=== PATIENT | male | born 1945 | race Caucasian/White ===

== ENCOUNTER → 2018-06-01 | Outpatient (CLI) | payer MEDICARE | END | disposition home or self-care (01) | LOC: US 14:05 | DX: I73.9 Peripheral vascular disease, unspecified (principal); I77.89 Other specified disorders of arteries and arterioles | CPT/HCPCS: 93922; 93925 ==

== ENCOUNTER → 2019-03-20 | Outpatient (CLI) | payer MEDICARE ==
[2018-06-27 11:00] VITALS: BP 100/59
[~2019-03-20] MED LIST: ASPI-482 PO; ASPI325T11 PO; ATEN25TA PO; CALC300T5 PO; CILO100T21 PO; CLOP75TA PO; DIPH25CA58 PO; DOCU-109 PO; FLUT16SP2 NS; GUAI600T47 PO; INSU100I13 SQ; INSU100I17 SQ; INSU100I27 SQ; INSU100V8 SQ; LIPITOR80 MG PO; LIRA0.6P2 SQ; LISI1TAB5 PO; LORA10TA68 PO; METF10007 PO; METO-247 PO; METO25TA4 PO; OMEP40CA5 PO; PANT20TA2 PO; RANI300C PO; REGADENOSON 0.4 MG/5 ML DISP.SYRIN. IV ONE; SERT100T PO; TRAZ-86 PO; UBID100T5 PO
--- NOTE | 2019-03-20 11:46 | RAD ---
MR#: [id number] Date of Study: 03/20/2019 Ordering Physician: TANNER OLIVA Referring Physician: SILVIA FREDERICK Tech: RT Juanpablo BabcockR) (N) APPROVED REPORT Test Type: Pharmacological Stress Nurse/Tech: Dre Lozoya RN Test Indications: CAD Cardiac History: CABG, stents, DM, HTN Medications: See Electronic Medical Record Medical History: See Electronic Medical Record Resting Heart Rate: 72 bpm Resting Blood Pressure: 161/68mmHg Pretest Chest Pain: None Nurse/Tech Notes lungs CTA, S1S2 Consent: The procedure was explained to the patient in lay terms. Informed consent was witnessed. Terence eout was entered into [employer]. History and Stress Test performed by Dre Lozoya RN Pharm. Details Pharmacologic stress testing was performed using 0.4mg per 5ml of regadenoson given intravenously ove r 7-10 seconds. Stress Symptoms dyspnea POST EXERCISE Reason for Termination: Infusion complete Max HR: 98 bpm Max Blood Pressure: 170/78mmHg Blood Pressure response to exercise: Normal blood pressure response during stress. Heart Rate response to exercise: normal response Chest Pain: No. Arrhythmia: No. ST Change: No. see above baseline INTERPRETATION Stress EKG Conclusion: The resting EKG shows a sinus rhythm with nonspecific ST-T wave changes. The stress EKG shows no significant changes from baseline. No EKG evidence of stress-induced ischemia. Imaging Protocol IMAGE PROTOCOL: Rest Tc-99m/stress Tc-99m 1 day Rest: Stress: Viability: Radiopharm.Tc99m GwvfkpnnqQd92f Sestamibi Dose10.5mCi 33mCi Duration 13min. 13min. Img Date 03/20/2019 03/20/2019 Inj-Img Wmht64cxl. 60min. Rest Admin Site:IV - Right AntecubitalAdministrator:RT Sadiq (R)(N) Stress Admin Site: IV - Right AntecubitalAdministrator: CROY Tenorio STRESS DATA End Diast. Vol.110.0mlLVEDV index BSA66.0ml End Syst. Vol.45.0mlLVESV index BSA27.0ml Myocardial Txbw506.0gEject. Skszdkal90.0% Stress Scores Regional WT0.00Summed WT13.00 Regional WM0.00Summed WM19.00 LV Perfusion The stress scans showed no significant defects. The rest scans showed no significant defects. Nuclear imaging shows no reversible ischemia or infarct. Wall Motion Overall normal LV systolic function, slight septal hypokinesis and an ejection fraction of 59%. LV Perf. Quant 17 Seg. SSS0.00 17 Seg. SRS3.00 17 Seg. SDS0.00 Stress Defect Extent (% LAD)0.00Rest Defect Extent (% LAD)11.30Rev. Defect Extent (% LAD)0.00 Stress Defect Extent (% LCX) 0.00Rest Defect Extent (% LCX)0.00Rev. Defect Extent (% LCX)0.00 Stress Defect Extent (% RCA)0.00Rest Defect Extent (% RCA)0.00Rev. Defect Extent (% RCA)0.00 Stress Defect Extent (% [place])0.00Rest Defect Extent (% [place])3.90Rev. Defect Extent (% [place])0.00 Conclusion 1. No EKG evidence of stressed induced ischemia. 2. Nuclear imaging shows no reversible ischemia or infarct. 3. LV systolic function shows slight septal hypokinesis and an ejection fraction at 59%. 4. Moderately low risk Lexiscan nuclear stress test. Signed by : Pako Cristina MD Electronically Approved : 03/20/2019 11:45:59
--- NOTE | 2019-03-20 11:52 | CARD ---
MR#: [id number] Date of Study: 03/20/2019 Ordering Physician: TANNER OLIVA, Referring Physician: TANNER OLIVA Tech: Madeline Adair RDCS APPROVED REPORT EXAM: Two-dimensional and M-mode echocardiogram with Doppler and color Doppler. Other Information Quality : Good INDICATION Cardiac Disease: CAD Surgery/Intervention CABG: Date: Approx 15 years ago 2D DIMENSIONS RVDd2.4 (2.9-3.5cm)Left Atrium(2D)3.2 (1.6-4.0cm) IVSd0.9 (0.7-1.1cm)Aortic Root(2D)2.6 (2.0-3.7cm) LVDd3.8 (3.9-5.9cm)LVOT Diameter2.0 (1.8-2.4cm) PWd1.0 (0.7-1.1cm)LVDs2.6 (2.5-4.0cm) FS (%) 32.1 %SV37.0 ml Aortic Valve AoV Peak Jose L.125.9cm/sAoV VTI29.9cm AO Peak GR.6.3mmHgLVOT Peak Jose L.81.5cm/s LVOT VTI 19.99cmAO Mean GR.4mmHg VALERIE (VMAX)2.37fb2ENJ (VTI)2.18cm2 Mitral Valve MV E Zchcekhc23.0cm/sMV DECEL BUQB761xm MV A Pvhpycae451.3cm/sMV MRL19gc E/A Ratio0.8MVA (PHT)3.66cm2 TDI E/Medial E'23.8 Tricuspid Valve TR P. Kcrczzpe880ab/sRAP XSBJIPRX7bbAs TR Peak Gr.84bxEqGHRL39ydZf Pulmonary Vein S1 Lrfuxceh18.9cm/sD2 Ygjdjxxc50.2cm/s LEFT VENTRICLE The left ventricle is normal size. There is borderline concentric left ventricular hypertrophy. The l eft ventricular systolic function is normal and the ejection fraction is within normal range. The Eje ction Fraction is 55-60%. There is mild hypokinesis in the mid-anteroseptal wall. Transmitral Doppler flow pattern is Grade I-abnormal relaxation pattern. RIGHT VENTRICLE The right ventricle is normal size. The right ventricular systolic function is normal. ATRIA The left atrium size is normal. The right atrium size is normal. The interatrial septum is intact wit h no evidence for an atrial septal defect or patent foramen ovale as noted on 2-D or Doppler imaging. AORTIC VALVE The aortic valve is calcified but opens well. Doppler and Color Flow revealed no significant aortic r egurgitation. There is no significant aortic valvular stenosis. MITRAL VALVE The mitral valve is thickened but opens well. Mitral annular calcification is mild. There is no evide nce of mitral valve prolapse. There is no mitral valve stenosis. Doppler and Color-flow revealed mild mitral regurgitation. TRICUSPID VALVE The tricuspid valve is normal in structure and function. Doppler and Color Flow revealed trace to mil d tricuspid regurgitation. The PA pressure was estimated at 30 mmHg. There is no tricuspid valve sten osis. PULMONIC VALVE The pulmonic valve is not well visualized. Doppler and Color Flow revealed trace to mild pulmonic nikita vular regurgitation. There is no pulmonic valvular stenosis. GREAT VESSELS The aortic root is normal in size. The ascending aorta is normal in size. The IVC is normal in size a nd collapses >50% with inspiration. PERICARDIAL EFFUSION There is no evidence of significant pericardial effusion. Critical Notification Critical Value: No <Conclusion> The left ventricle is normal size. The left ventricular systolic function is normal and the ejection fraction is within normal range. The Ejection Fraction is 55-60%. There is mild hypokinesis in the mid-anteroseptal wall. There is borderline concentric left ventricular hypertrophy. There is no significant aortic valvular stenosis. Doppler and Color Flow revealed no significant aortic regurgitation. Doppler and Color-flow revealed mild mitral regurgitation. Doppler and Color Flow revealed trace to mild tricuspid regurgitation. The PA pressure was estimated at 30 mmHg. Signed by : Pako Cristina MD Electronically Approved : 03/20/2019 11:52:22
== END | disposition home or self-care (01) ==
LOC: NM 07:35
PROVIDERS: ATTEND Internal Medicine Cardiovascular Disease
DX: I08.8 Other rheumatic multiple valve diseases (principal); I25.10 Atherosclerotic heart disease of native coronary artery without angina pectoris; I10 Essential (primary) hypertension; E11.9 Type 2 diabetes mellitus without complications; Z79.01 Long term (current) use of anticoagulants; Z95.1 Presence of aortocoronary bypass graft; Z95.818 Presence of other cardiac implants and grafts
CPT/HCPCS: 78452; 93017; 93306; A9500; J2785

== ENCOUNTER → 2019-06-10 | Outpatient (CLI) | payer MEDICARE ==
[2018-06-27 11:00] VITALS: BP 100/59
[~2019-06-10] MED LIST changes: -REGADENOSON 0.4 MG/5 ML DISP.SYRIN. IV ONE; +ZOLPIDEM 5 MG TABLET. PO ONE
--- NOTE | 2019-06-11 13:24 | SLEEP ---
DATE OF STUDY: 06/10/2019 SLEEP STUDY ATTENDING PHYSICIAN: Dr. Julita Greenwood. The patient is 73 years old who weighs 148 pounds with a BMI of 27. The patient's [place] score was 10. The patient underwent a split night study performed at [facility]. During the night study, the patient spent 416 minutes in bed and slept for 340 minutes with a sleep efficiency of 82%. Sleep latency was 55 minutes with absent REM sleep. Overall, sleep architecture showed normal stage 1 sleep, increased stage 2 sleep, absent slow wave and absent REM sleep. During the initial diagnostic portion of the study, the patient slept for 84 minutes. During that time, there were 40 obstructive apneas, 48 mixed apneas, no central apneas. There were 53 hypopneas. The patient's apnea hypopnea index was 101 per hour with a supine index of 105 per hour. REM sleep was not observed. EKG monitoring revealed an average heart rate of 67 beats per minute, no sustained arrhythmias observed. Nocturnal oximetry study revealed a mean oxygen saturation of 98%, the lowest of 80%. A 4% of time oxygen saturation remained between 80% and 89%. PLMS were seen at index of 58 per hour and 5 per hour caused EEG arousals. The patient met the criteria for CPAP initiation. It was started at 5 cm water and titrated up to 16 cm water. At the final pressure, the patient slept for 146 minutes. The patient had supine sleep throughout. No REM sleep observed. The patient's AHI was reduced to 1 per hour and oxygen saturation remained above 92%. The patient used a full face mask, small size. IMPRESSION: 1. Severe sleep apnea-hypopnea syndrome at an apnea hypopnea index of 101 per hour. 2. Nocturnal hypoxia secondary obstructive sleep apnea, but resolved with continuous positive airway pressure. 3. Severe periodic limb movements. RECOMMENDATIONS: 1. CPAP at 16 cm water completely eliminated the patient's sleep apnea and should be used on a nightly basis. 2. Follow up in 4-6 weeks to assess compliance with CPAP and to document clinical improvement. 3. Avoid WEBSPHERE DEVELOPER depressants. 4. Caution regarding driving until symptoms of sleep apnea resolve with the use of CPAP. 5. The PLMS does not need to be treated unless the patient has symptoms of restless legs during the day. NELY NEWMAN MD DR: ERINN/elzbieta JOB#: [id number] / [id number] JULITA Dai MD
== END | disposition home or self-care (01) ==
LOC: RT 18:58
PROVIDERS: ATTEND Family Medicine
DX: G47.33 Obstructive sleep apnea (adult) (pediatric) (principal); G47.34 Idiopathic sleep related nonobstructive alveolar hypoventilation; R40.0 Somnolence
CPT/HCPCS: 95810

== ENCOUNTER → 2019-09-20 | Outpatient (CLI) | payer MEDICARE ==
[2018-06-27 11:00] VITALS: BP 100/59
[~2019-09-20] MED LIST changes: +LISI1TAB19 PO; -LISI1TAB5 PO; +OMEP40CA45 PO; -OMEP40CA5 PO; -ZOLPIDEM 5 MG TABLET. PO ONE
--- NOTE | 2019-09-20 18:11 | KCIC ---
Examination: RIBS RIGHT AND PA CHEST History: Right rib pain. Fell one week ago. Comparison/Correlation: None Findings: PA view of the chest and 3 additional images of the right ribs were provided. Sternal wires and mediastinal clips are present. Epicardial leads noted. Heart size and pulmonary vasculature are normal. No infiltrate or pleural effusion. Minimal left basilar discoid atelectasis. No pneumothorax. No acute fracture or bony destruction. Old right eighth and ninth rib fractures are present. Impression: No acute fracture. No infiltrate or pneumothorax. Electronically signed by: Harvinder Graham MD (09/20/2019 6:08 PM) [facility]
== END ==
LOC: KCIC 12:49
PROVIDERS: ATTEND Nurse Practitioner Family
DX: J98.11 Atelectasis (principal); R07.81 Pleurodynia; I25.10 Atherosclerotic heart disease of native coronary artery without angina pectoris; I10 Essential (primary) hypertension; E78.00 Pure hypercholesterolemia, unspecified; E11.9 Type 2 diabetes mellitus without complications; K21.9 Gastro-esophageal reflux disease without esophagitis; Z96.89 Presence of other specified functional implants; Z98.890 Other specified postprocedural states
CPT/HCPCS: 71101

== ENCOUNTER 2019-10-15 06:55 | Observation (INO) | payer MEDICARE ==
[2019-10-15] VITALS (16 sets, daily range): BP systolic 101–166; BP diastolic 45–108
[~2019-10-15] VITALS: Ht 157.5 cm; Wt 67.7 kg
[2019-10-15] MEDS ORDERED: LIDOCAINE 1% PF 2 ML VIAL. ONE (07:33)
[2019-10-15] MEDS ORDERED: IODIXANOL 320 MG/ML 100 ML VIAL. ONE ×2 (07:34→09:17)
[2019-10-15 07:56] LABS: CALCIUM 8.9 mg/dL (8.5-10.1); GFR 73.2
[2019-10-15] MEDS ORDERED: fentaNYL PF VIAL 100 MCG/2 ML VIAL ONE ×2 (08:25→09:05)
[2019-10-15] MEDS ORDERED: MIDAZOLAM HCL/PF 2 MG/2 ML VIAL. ONE ×2 (08:26→09:05)
[2019-10-15] MEDS ORDERED: LIDOCAINE 1% Multi-Dose 20 ML VIAL. ONE (08:37)
[2019-10-15 08:51] LABS: HEMATOCRIT 48.3 % (39.0-53.0); RED BLOOD COUNT 5.58 x10^6/uL (4.30-5.70)
[2019-10-15] MEDS ORDERED: IODIXANOL 320 MG/ML 100 ML VIAL. IART ONE (09:00)
[2019-10-15] MEDS ORDERED: LIDOCAINE 1% Multi-Dose 20 ML VIAL. INJ ONE (09:00)
[2019-10-15] MEDS ORDERED: fentaNYL PF VIAL 100 MCG/2 ML VIAL IV ONE ×2 (09:00→09:45)
[2019-10-15] MEDS ORDERED: MIDAZOLAM HCL/PF 2 MG/2 ML VIAL. IV ONE ×2 (09:00→09:15)
[2019-10-15] MEDS ORDERED: INSU100I13 SQ (09:06)
[2019-10-15] MEDS ORDERED: INSU100V11 IJ (09:06)
[2019-10-15] MEDS ORDERED: BIVALIRUDIN 250 MG VIAL. IV ONE ×2 (09:14→09:30)
[2019-10-15] MEDS ORDERED: NITROGLYCERIN 200 MCG/2 ML SYRINGE FOR CATH/VASC LAB. ONE (09:28)
[2019-10-15] MEDS ORDERED: NITROGLYCERIN 200 MCG/2 ML SYRINGE FOR CATH/VASC LAB. IART ONE (09:30)
[2019-10-15] MEDS ORDERED: hydrALAZINE 20 MG/ML VIAL. ONE (09:37)
[2019-10-15] MEDS ORDERED: hydrALAZINE 20 MG/ML VIAL. IVP ONE (09:45)
[2019-10-15] MEDS ORDERED: IV 1/2 NORMAL SALINE 1,000 ML IV SCH (10:00)
[2019-10-15] MEDS ORDERED: CLOPIDOGREL BISULFATE 75 MG TABLET PO ONE (10:00)
[2019-10-15] MEDS ORDERED: NITROGLYCERIN SUBLINGUAL 0.4 MG BOTTLE OF 25. SL PRN (10:00)
[2019-10-15] MEDS ORDERED: ASPIRIN 325 MG TABLET PO ONE (10:00)
[2019-10-15] MEDS ORDERED: ACETAMINOPHEN 325 MG TABLET. PO PRN (10:00)
--- NOTE | 2019-10-15 10:00 | PDOC ---
MODERATE SEDATION ASSESSMENT RISKS/ALTERNATIVES Risks/Alternatives Risks and alternatives of this type of sedation and procedure discussed with: RISK/ALTERNATIVES: Patient H & P ON CHART H & P H & P on chart and reviewed for co-morbid conditions and appropriate labs. H&P ON CHART: Yes STATUS PREG STATUS ASSESSED: N/A MEDS/ALLERGIES REVIEWED Meds/Allergies Reviewed Medications and Allergies including time and route of recently administered narcotics and sedatives. MEDS/ALLERGIES REVIEWED: Yes ASA RATING ASA RATING: II AIRWAY ASSESSMENT Airway Assessment Airway patency, oral function limitations, presence of caps, crowns, dentures, partials, and ability to extend neck assessed. AIRWAY ASSESSMENT: Yes MALLAMPATI SCORE MALLAMPATI SCORE: II PRE-SEDATION ASSESSMENT PRE-SEDATION ASSESSMENT: Yes TANNER OLIVA MD Oct 15, 2019 10:00
[2019-10-15] MEDS ORDERED: INSULIN GLARGINE SYRINGE. SQ SCH (12:00)
[2019-10-15] MEDS: SERTRALINE 50 MG TABLET. PO SCH (12:27)
[2019-10-15] MEDS: PANTOPRAZOLE 40 MG TABLET.DR. PO SCH (12:27)
[2019-10-15] MEDS: METOPROLOL TART IMMED RELEASE 25 MG TABLET. PO SCH ×2 (12:27→21:06)
[2019-10-15] MEDS: INSULIN GLARGINE SYRINGE. SQ SCH (12:32)
--- NOTE | 2019-10-15 12:51 | CARD ---
MR#: [id number] Date of Study: 10/15/2019 Ordering Physician: TANNER OLIVA, Referring Physician: TANNER OLIVA Tech: FABIENNE SAL RTR APPROVED REPORT Technologist: FABIENNE SAL RTR Nurse: MARIA L VARGAS RN Procedure(s) performed: 1. Left heart catheterization, selective coronary angiography and selective angiography of the bypass grafts 2. Successful PCI/drug eluting stent placement to the saphenous vein graft to the diagonal branch MODERATE SEDATION TIME: 80 MINS FLUORO TIME: 26.8 MIN DOSE: 74.4 GYCM2 CONTRAST: 167 VISI INDICATION The indication(s) include : unstable angina . CS Clinical Frailty Scale [facility] Clinical Frailty Scale: Mildly Frail Heart Failure Heart Failure: No PROCEDURE NARRATIVE After explaining the risks, benefits and alternative options, informed consent was obtained from osman ent. Patient was brought to the cardiac Non Licensed Nuclear Equipment Operator and his right groin was prepped and draped in the us ual fashion. 20 mL of 2% lidocaine was infiltrated into the skin and subcutaneous tissues for local a nesthesia. Arterial access was obtained in the right common femoral artery and a 6 Cameroonian sheath was inserted. 6 Cameroonian JL4 catheter was used to perform selective angiography of the left coronary artery . 6 Cameroonian JR4 catheter was used to perform selective angiography of the saphenous vein graft to the diagonal branch. 6 Cam[place]onian IM catheter was used to perform selective angiography of the left internal mammary artery graft to the left anterior descending artery. The saphenous vein graft to the obtuse m arginal branch appears to have been occluded proximally. The saphenous vein graft to the right temple ry artery and the [place] right coronary artery were noted to be occluded from prior cardiac catheteri zations and hence was not engaged. LVEDP and transaortic gradients were measured. The following findi ngs were noted. FINDINGS 1. Hemodynamics: Left ventricle end-diastolic pressure 13 mmHg. No pullback gradient across the aor tic valve. 2. Coronary and bypass graft angiography: a. The left main coronary artery arose from the left sinus of Valsalva and showed a widely patent pr eviously placed stent extending into the left circumflex artery. b. The left anterior descending artery is occluded proximally. c. The left circumflex artery showed widely patent stent extending from the left main coronary arter y into the proximal to midsegment. The first obtuse marginal branch is occluded proximally. No criti maryam lesions needing intervention were noted in the rest of the left circumflex artery. d. The right coronary artery was known to be occluded in the proximal segment. There is distal recon stitution of the posterior descending branch from left to right collaterals. e. The saphenous vein graft to the right coronary artery is noted to be occluded from prior cardiac catheterization. f. The saphenous vein graft to the diagonal branch showed 80% stenosis in the proximal segment and 7 0% stenosis in the proximal to midsegment. g. The saphenous vein graft to the obtuse marginal branch of left circumflex artery appears to be oc cluded proximally. h. The left internal mammary artery graft to the left anterior descending artery was widely patent. Distal to the anastomosis, the [place] left anterior descending artery did not show any significant st enosis. g. Incidental note was made of 80% stenosis involving the very proximal segment of right SFA on YARD ATTENDANT angiography prior to vascular access closure. INTERVENTION The saphenous vein graft to the diagonal branch was engaged with a 6 Cam[place]onian JR4 guide catheter with s ideholes. The stenoses in the proximal and proximal to mid segments were crossed with a 0.014 inch [place] a[place] Pro water guidewire. These with predilated with a 3.0 x 20 mm euphora balloon following which thi s was successfully treated with a 3.5 x 28 mm Corea Xience Ariana drug-eluting stent. Follow-up viet orrhaphy showed resolution of the lesions with good distal flow. Patient tolerated the procedure well . Hemostasis was achieved using mynx closure device. There were no immediate complications. IRENA Flow IRENA Flow (Pre-Intervention): IRENA-2 IRENA Flow (Post-Intervention): IRENA-3 Conclusion 1. Severe [place] vessel coronary artery disease s/p CABG as described above with patent previously p laced stent extending from the left main coronary artery into the left circumflex artery, patent LYON to LAD, significant stenoses involving the saphenous vein graft to the diagonal branch and occluded saphenous vein graft to RCA and saphenous vein graft to OM/LCx. 2. Successful PCI/drug eluting stent placement to the saphenous vein graft to the diagonal branch. Recommendations 1. Aspirin 325 mg daily for one month followed by 81 mg daily 2. Plavix 75 mg daily for preferably one year 3. Cardiovascular risk factor modification Signed by : Tanner Oliva, Electronically Approved : 10/15/2019 12:51:19
[2019-10-15] MEDS: INSULIN LISPRO 300 UNITS/3 ML VIAL. SQ SCH (17:17)
[2019-10-15] MEDS ORDERED: IBUPROFEN 400 MG TABLET. PO PRN (18:30)
[2019-10-15] MEDS ORDERED: traZODone 100 MG TABLET. PO SCH (21:00)
[2019-10-15] MEDS ORDERED: ATORVASTATIN CALCIUM 40 MG TABLET. PO SCH (21:00)
[2019-10-16 03:00] VITALS: BP 146/61
[2019-10-16 07:00] VITALS: BP 158/76
[2019-10-16] MEDS ORDERED: CLOPIDOGREL BISULFATE 75 MG TABLET PO SCH (08:00)
[2019-10-16] MEDS ORDERED: ASPIRIN ENTERIC COATED 325 MG TABLET.DR. PO SCH (08:00)
[2019-10-16] MEDS: SERTRALINE 50 MG TABLET. PO SCH (08:49)
[2019-10-16] MEDS: METOPROLOL TART IMMED RELEASE 25 MG TABLET. PO SCH (08:49)
[2019-10-16] MEDS: PANTOPRAZOLE 40 MG TABLET.DR. PO SCH (08:49)
[2019-10-16] MEDS: INSULIN GLARGINE SYRINGE. SQ SCH (08:54)
[2019-10-16] MEDS: INSULIN LISPRO 300 UNITS/3 ML VIAL. SQ SCH ×2 (08:56→12:44)
[2019-10-16 11:00] VITALS: BP 163/79
--- NOTE | 2019-10-16 12:23 | NUR ---
SS following for discharge planning. SS reviewed pt chart. Pt is from home with spouse and is currently on room air. SS will continue to follow for discharge planning.
--- NOTE | 2019-10-16 13:08 | DISCH ---
DISCHARGE INSTRUCTIONS Condition on Discharge Condition on Discharge: Stable Activity After Discharge Activity Instructions for Disc: Activity as tolerated, Other, see below (See diagnosis specific handout ) Bathing Instructions: No Tub Bath until see Lifting Instructions after Dis: Do not lift >10 pounds Exercise Instruction after Dis: Progress as tolerated Weight Bearing Status after Di: Other, see below Diet after Discharge Diet after Discharge: Cardiac, Diabetic No Calorie Level Diet Texture: Regular Liquid Texture: Thin Liquid Swallowing Supervision: None needed Wound Incision Care Wound/Incision Care: Other, see below (keep puncture site clean and dry. May leave open to air.) Checks after Discharge Checks after discharge: Check blood press - daily, Check blood sugar, ac/hs Contacting the DR. after DC Call your doctor for: Concerns you may have Treatment/Equipment after DC Adaptive Equipment Issued: None JESUS ALBERTO SANDERS APRN Oct 16, 2019 13:08
--- NOTE | 2019-10-16 13:09 | PDOC3 ---
Discharge Summary Visit Information Date of Admission: Oct 15, 2019 Date of Discharge: Oct 16, 2019 Admitting Diagnosis: Chest pain, CAD Admitting Diagnosis Comment: CAD PAD Hypertension Hyperlipidemia Diabetes, II Final Diagnosis CAD PAD Hypertension Hyperlipidemia Diabetes, II Brief Hospital Course Allergies Allergies Coded Allergies Type Severity Reaction Last Updated Verified No Known Drug Allergies 06/05/14 No Vital Signs Vital Signs Date Time Temp Pulse Resp B/P (MAP) Pulse Ox O2 Delivery O2 Flow Rate FiO2 10/16/19 11:00 98.1 63 18 163/79 (107) 96 Room Air 98.1 10/15/19 16:18 2.0 Lab Results Laboratory Tests Test 10/15/19 07:28 10/15/19 11:53 10/15/19 16:48 10/15/19 20:41 White Blood Count 7.0 x10^3/uL (4.0-11.0) Red Blood Count 5.58 x10^6/uL (4.30-5.70) Hemoglobin 16.0 g/dL (13.0-17.5) Hematocrit 48.3 % (39.0-53.0) Mean Corpuscular Volume 87 fL (79-100) Mean Corpuscular Hemoglobin 29 pg (25-35) Mean Corpuscular Hemoglobin Concent 33 g/dL (31-37) Red Cell Distribution Width 15.0 % (11.5-14.5) Platelet Count 385 x10^3/uL (140-400) Prothrombin Time 12.0 SEC (11.7-14.0) Prothromb Time International Ratio 0.9 (0.8-1.1) Sodium Level 141 mmol/L (136-145) Potassium Level 4.0 mmol/L (3.5-5.1) Chloride Level 103 mmol/L (98-107) Carbon Dioxide Level 30 mmol/L (21-32) Anion Gap 8 (6-14) Blood Urea Nitrogen 26 mg/dL (8-26) Creatinine 1.0 mg/dL (0.7-1.3) Estimated GFR (Cockcroft-Gault) 73.2 Glucose Level 109 mg/dL (70-99) Calcium Level 8.9 mg/dL (8.5-10.1) Glucose (Fingerstick) 98 mg/dL (70-99) 161 mg/dL (70-99) 54 mg/dL (70-99) Test 10/15/19 22:38 10/16/19 03:02 10/16/19 08:18 10/16/19 11:50 Glucose (Fingerstick) 83 mg/dL (70-99) 146 mg/dL (70-99) 122 mg/dL (70-99) 138 mg/dL (70-99) Laboratory Tests Test 10/15/19 16:48 10/15/19 20:41 10/15/19 22:38 10/16/19 03:02 Glucose (Fingerstick) 161 mg/dL (70-99) 54 mg/dL (70-99) 83 mg/dL (70-99) 146 mg/dL (70-99) Test 10/16/19 08:18 10/16/19 11:50 Glucose (Fingerstick) 122 mg/dL (70-99) 138 mg/dL (70-99) Brief Hospital Course Mr. Dickson is a 74 old male, with a history of CAD s/p CABG and PAD s/p TOWER LOADER OPERATOR to the right SFA and popliteal arteries and most recent atherectomy/TOWER LOADER OPERATOR/stent to the left popliteal artery and atherectomy/TOWER LOADER OPERATOR ti the left TP trunk and posterior tibial artery, who presented to the office for followup with complaints of chest pain that was associated with dyspnea upon exertion. Given symptomatology and significant history and risk factors, cardiac catheterization was recommended. Left heart cath revealed severe [place] vessel coronary artery disease s/p CABG with patent previously placed stent extending from the left main coronary artery into the left circumflex artery, patent LYON to LAD, significant stenoses involving the saphenous vein graft to the diagonal branch and occluded saphenous vein graft to RCA and saphenous vein graft to OM/LCx. Patient underwent successful PCI/drug eluting stent placement to the saphenous vein graft to the diagonal branch. Tolerated procedure well and was monitored overnight without complications. Right groin arteriotomy site soft, clean, dry. No ecchymosis or hematoma present. Bilateral neurovascular status intact. Lungs CTA. No edema. We will increase ASA to 325mg x1 month then resume 81mg thereafter. Otherwise, medications will remain the same. Discharge instructions reviewed and patient verbalized an understanding. Patient seen and examined. Agree with METAL STAMPER's assessment and plan. s/p PCI/FAMILIA to SVG to diagonal yesterday, presently chest pain-free Continue current medications including dual antiplatelet therapy Follow-up with our office as scheduled Discharge Information Condition at Discharge: Improved Follow Up: Weeks (11/27/19 at 9:30) Disposition/Orders: D/C to Home Scheduled Aspirin (Aspirin Ec) 325 Mg Tablet., 325 MG PO DAILYWBKFT, #30 Prescribed by: FER LAI MD on 07/31/17 1340 Last Taken: Unknown Dose on 10/14/19 Last Action: Last Taken Edited on 10/15/19905 by JULITA WHITTAKER Atorvastatin Calcium (Lipitor) 80 Mg Tablet, 80 MG PO QHS for FOR CHOLESTEROL, #30 Ref 0 (Reported) Indication: cholesterol Entered as Reported by: EBONY CHENG on 06/05/14 151 Last Taken: Unknown Dose on 10/14/19 Last Action: Converted on 10/15/191116 by JUSTA JENSEN Clopidogrel Bisulfate (Clopidogrel) 75 Mg Tablet, 1 TAB PO DAILY, #90 Ref 1 (Reported) Indication: blood thinner/for stent Entered as Reported by: FAUSTO GARDINER on 12/12/15 1108 Last Taken: Unknown Dose on 10/14/19 Last Action: Last Taken Edited on 10/15/19905 by JULITA WHITTAKER Fluticasone Propionate (Flonase) 16 Gm [place].susp, 1 SPRAY NS DAILY, (Reported) Indication: allergies Entered as Reported by: EBONY CHENG on 06/05/14 1510 Last Taken: Unknown Dose on Unknown Date & Time Last Action: Last Taken Edited on 10/15/19905 by JULITA WHITTAKER Insulin Glargine,Hum.rec.anlog (Lantus Solostar) 100 Unit/1 Ml Insuln.pen, 17 UNIT SQ DAILY07 for rx, #15 Ref 5 (Reported) Entered as Reported by: JULITA WHITTAKER on 10/15/19905 Last Taken: Unknown Dose on 10/14/19 Last Action: Converted on 10/15/191116 by JUSTA JENSEN Insulin Regular, Human (Novolin R) 100 Unit/1 Ml Vial, 3-10 UNIT IJ BIDAC for rx, (Reported) Entered as Reported by: JULITA WHITTAKER on 10/15/19905 Last Taken: Unknown Dose on 10/14/19 Last Action: New Order on 10/15/19905 by JULITA WHITTAKER Metoprolol Tartrate (Metoprolol Tartrate) 25 Mg Tablet, 25 MG PO BID, #60 Prescribed by: FER LAI MD on 07/31/17 1340 Last Taken: Unknown Dose on 10/14/19 Last Action: Continued on 10/15/191116 by JUSTA JENSEN Pantoprazole Sodium (Protonix) 20 Mg Tablet.dr, 20 MG PO DAILY, (Reported) Entered as Reported by: CHINEDU BLANCAS on 03/20/19832 Last Taken: Unknown Dose on 10/14/19 Last Action: Converted on 10/15/191116 by JUSTA JENSEN Sertraline Hcl (Zoloft) 100 Mg Tablet, 100 MG PO DAILY for ANTI-DEPRESSANT, Ref 0 (Reported) Entered as Reported by: CHINEDU BLANCAS on 03/20/19832 Last Taken: Unknown Dose on 10/14/19 Last Action: Converted on 10/15/191116 by JUSTA JENSEN Trazodone Hcl (Trazodone Hcl) 100 Mg Tablet, 100 MG PO HS, (Reported) Entered as Reported by: CHINEDU BLANCAS on 03/20/19832 Last Taken: Unknown Dose on 10/14/19 Last Action: Continued on 10/15/191116 by JUSTA JENSEN Scheduled PRN Guaifenesin (Mucinex) 600 Mg Tablet.er, 1 TAB PO BID PRN for CONGESTION, #14 (Reported) IndicatioN: congestion/cough Entered as Reported by: IVETT BERNARD on 11/17/15 0710 Last Taken: Unknown Dose on Unknown Date & Time Last Action: Last Taken E dited on 10/15/19905 by JULITA WHITTAKER Miscellaneous Medications Docusate Sodium (Colace) 100 Mg Capsule, 100 MG PO, (Reported) Entered as Reported by: CHINEDU BLANCAS on 03/20/19832 Last Taken: Unknown Dose on 10/13/19 Last Action: Last Taken Edited on 10/15/19905 by JULITA WHITTAKER Patient Instructions Patient Instructions GENERAL INSTRUCTIONS: 1. Your dressing should be removed prior to leaving the hospital. 2. It is OK to shower the day after your procedure. 3. If you received stents, be sure to carry your stent information card with you in your wallet/purse at all times. 4. Call the office immediately at [phone] if you notice any fever or if there is redness, worsening tenderness/pain, increased bruising, or drainage from the puncture site. 5. Should you have bleeding from the site, lie down immediately & put pressure on the site. The pressure should be hard enough to stop the bleeding. Have the nearest person call 911. DO NOT try to drive to the ER with active bleeding. 6. If you notice a change in color, coolness to touch, or loss of feeling in the affected extremity, come to the emergency room. Please have someone drive you or call 911 if no one is available. DO NOT drive yourself. 7. If you normally take glucophage (metformin), please do not take this medic ine for 48 hours following your procedure. 8. DO NOT STOP TAKING YOUR PLAVIX OR ASPIRIN UNLESS IT IS CLEARED BY A REP RESENTATIVE OF YOUR VISUAL MERCHANDISING COORDINATOR AT OUR OFFICE. 9. QUIT SMOKING: the [place] [employer], [place] [employer], & [place] [employer] have cessation resources available on their websites 10. Please have someone available to drive you home from the hospital as you may be limited by sedation medications given during the procedure. Femoral (Groin) access: 1. Do no lifting, pushing, pulling, bending, stooping, or recurrent stair climbing for 3 days following your procedure. 2. Once past the first 3 days, do not do any HEAVY exertion or lifting for one week following the procedure. No gym workouts, running, lifting greater than a gallon of milk, etc 3. Do not submerge in bath or pool for one week. OK to drive 3 days following your procedure, but if going long distance, do not go alone & take hourly breaks to get out of car and walk around. Call the office at [phone] for any questions or concerns. JESUS ALBERTO SANDERS APRN Oct 16, 2019 13:09 TANNER OLIVA MD Oct 16, 2019 16:25
--- NOTE | 2019-10-16 14:45 | NUR ---
Discharge Note: JANINE KOCH Discharge instructions and discharge home medications reviewed with Patient and a copy given. All questions have been answered and understanding verbalized. The following instructions and handouts were given: S/P CATH EDUCATION, MEDICATION LIST, DISCHARGE INSTRUCTIONS, MYNX CLOSURE ID CARD, STENT ID CARD Discontinued lines and drains: IV DISCONTINUED, DRESSING CLEAN, DRY AND intact. Patient discharged to HOME with SPOUSE via AMBULATION
== END 2019-10-16 14:30 | disposition home or self-care (01) ==
LOC: CCL 06:55 → 2 SOUTH 09:45 → INTOOBSV 09:45
PROVIDERS: ADMIT Internal Medicine Cardiovascular Disease; ATTEND Internal Medicine Cardiovascular Disease
DX: I25.10 Atherosclerotic heart disease of native coronary artery without angina pectoris (principal); E11.51 Type 2 diabetes mellitus with diabetic peripheral angiopathy without gangrene; I10 Essential (primary) hypertension; E78.5 Hyperlipidemia, unspecified; Z95.1 Presence of aortocoronary bypass graft; Z98.62 Peripheral vascular angioplasty status; Z79.82 Long term (current) use of aspirin; Z79.4 Long term (current) use of insulin; Z79.02 Long term (current) use of antithrombotics/antiplatelets; Z79.899 Other long term (current) drug therapy
CPT/HCPCS: 36415; 80048; 82962; 85027; 85610; 92937; 93459; 96361; 96372; 96374; 96375; C1713; C1725; C1769; C1874; C1887; C1892; G0269; G0378; G0379; J0360; J0583; J1644; J1815; J2250; J3010; J3490; Q9967; 99152; 99153

== ENCOUNTER 2020-06-05 13:18 | Emergency (ER) | payer MEDICARE ==
[~2020-06-05] VITALS: Ht 157.5 cm; Wt 66.0 kg
[~2020-06-05 13:18] MED LIST changes: +INSU100V11 IJ; +TRAZ-123 PO; -TRAZ-86 PO
[2020-06-05 13:31] VITALS: BP 167/88
[2020-06-05] MEDS ORDERED: SURGICEL HEMOSTAT 4X8 EACH. TP ONE (14:30)
--- NOTE | 2020-06-05 14:43 | RAD ---
FINGER(S) RIGHT History: Reason: R middle finger nail avulsion/ injury with knife / Spl. Instructions: / History: Technique: PA view the hand and 2 additional views of the third digit. Comparison: None. Findings: Normal alignment. No fracture. Third digit distal soft tissue injury and swelling. Mild distal interphalangeal degenerative changes. Moderate first carpometacarpal and triscaphe DJD. Vascular calcifications. Impression: 1. No acute osseous abnormality. 2. Third distal digit soft tissue injury. Electronically signed by: Hollis Real DO (06/05/2020 2:40 PM) [facility]
--- NOTE | 2020-06-05 15:29 | PHYS DOC ---
Past Medical History Past Medical History: CAD, CHF, Diabetes-Type II, GERD, High Cholesterol, Hypertension, Vascular Disease Past Surgical History: Coronary Bypass Surgery Additional Past Surgical Histo: lower extremity SECURITY SYSTEMS SPECIALIST; stents Smoking Status: Never Smoker Alcohol Use: Occasionally Drug Use: None General Adult EDM: Chief Complaint: LACERATION/AVULSION HPI: HPI: Patient is a 74 year old male who presents to the emergency department with complaints of a laceration to the nail of the middle finger of his right hand. Patient states he was carving some wood with a knife when he accidentally cut his finger. He reports his last tetanus shot was less than 5 years ago. The patient denies any decreased sensation, numbness, tingling, or impaired range of motion of the affected finger. He currently denies any pain. He denies the use of any blood thinners other than an aspirin that he takes once daily. Review of Systems: Review of Systems: Constitutional: Denies fever or chills. [] Musculoskeletal: Denies joint pain. [] Integument: See HPI Neurologic: Denies focal weakness or sensory changes. [] Psychiatric: Denies depression or anxiety. [] Heart Score: Risk Factors: Risk Factors: DM, Current or recent (<one month) smoker, HTN, HLP, family histo ry of CAD, obesity. Risk Scores: Score 0 - 3: 2.5% MACE over next 6 weeks - Discharge Home Score 4 - 6: 20.3% MACE over next 6 weeks - Admit for Clinical Observation Score 7 - 10: 72.7% MACE over next 6 weeks - Early Invasive Strategies Current Medications: Current Medications Medications (Trade) Dose Ordered Sig/Andrey Start Time Stop Time Status Last Admin Dose Admin Cellulose (Surgicel Hemostat 4x8) 1 each 1X ONCE 06/05/20 14:30 06/05/20 14:31 DC 06/05/20 14:16 1 EACH Allergies: Allergies: Allergies Coded Allergies Type Severity Reaction Last Updated Verified No Known Drug Allergies 06/05/14 No Physical Exam: PE: Constitutional: Well developed, well nourished, no acute distress, non-toxic appearance. [] HENT: Normocephalic, atraumatic, bilateral external ears normal, nose normal. [] Eyes: PERRLA, EOMI, conjunctiva normal, no discharge. [] Neck: Normal range of motion, no stridor. [] Cardiovascular:Heart rate regular rhythm Lungs & Thorax: Respirations even and unlabored, no retractions, no respiratory distress Skin: Warm, dry, no erythema, no rash; partial fingernail avulsion of the distal aspect of the right middle finger, without visible foreign body, bleeding controlled with direct pressure held by patient. [] Extremities: R hand: No cyanosis, ROM intact, no edema. [] Neurologic: Alert and oriented X 3, no focal deficits noted. [] Psychologic: Affect normal, judgement normal, mood normal. [] Current Patient Data: Vital Signs: Vital Signs Date Time Temp Pulse Resp B/P (MAP) Pulse Ox O2 Delivery O2 Flow Rate FiO2 06/05/20 13:31 98.2 75 167/88 (114) 96 Room Air 98.2 EKG: EKG: [] Radiology/Procedures: Radiology/Procedures: PROCEDURE: FINGER(S) RIGHT FINGER(S) RIGHT History: Reason: R middle finger nail avulsion/ injury with knife / Spl. Instructions: / History: Technique: PA view the hand and 2 additional views of the third digit. Comparison: None. Findings: Normal alignment. No fracture. Third digit distal soft tissue injury and swelling. Mild distal interphalangeal degenerative changes. Moderate first carpometacarpal and triscaphe DJD. Vascular calcifications. Impression: 1. No acute osseous abnormality. 2. Third distal digit soft tissue injury.[] The third finger of the right hand was cleansed with chlorhexidine scrub and normal saline. Surgicel was applied over the avulsed site by myself to promote clotting. The affected finger was then wrapped with Kerlix and Coban by myself. Course & Med Decision Making: Course & Med Decision Making Pertinent Labs and Imaging studies reviewed. (See chart for details) [] Dragon Disclaimer: Dragon Disclaimer: This electronic medical record was generated, in whole or in part, using a voice recognition dictation system. Departure Departure Impression: Primary Impression: Fingernail avulsion, partial Qualified Codes: S61.309A - Unspecified open wound of unspecified finger with damage to nail, initial encounter Disposition: 01 HOME, SELF-CARE Condition: STABLE Referrals: NATHALY CONTRERAS APRN (PCP) Patient Instructions: Nail Avulsion Injury Additional Instructions: Keep the area clean and dry. You may take Tylenol or ibuprofen as needed for pain. Keep the dressing that was placed today on for 24 hours then change the dressing twice a day and apply antibiotic ointment to the area. Follow-up with your primary care doctor next week to have site rechecked, return to the ER if you develop signs of infection including: redness, warmth, drainage, or a fever. Justicifation of Admission Dx: Justifications for Admission: Justification of Admission Dx: N/A HOLLI SHARP CREATIVE DEVELOPER Jun 05, 2020 15:29
== END 2020-06-05 15:34 | disposition home or self-care (01) ==
LOC: ER 13:18
DX: S61.212A Laceration without foreign body of right middle finger without damage to nail, initial encounter (principal); I11.0 Hypertensive heart disease with heart failure; I50.9 Heart failure, unspecified; K21.9 Gastro-esophageal reflux disease without esophagitis; E78.00 Pure hypercholesterolemia, unspecified; E11.9 Type 2 diabetes mellitus without complications; I25.10 Atherosclerotic heart disease of native coronary artery without angina pectoris; Z95.1 Presence of aortocoronary bypass graft; Z95.5 Presence of coronary angioplasty implant and graft; W26.0XXA Contact with knife, initial encounter; Y93.89 Activity, other specified; Y92.89 Other specified places as the place of occurrence of the external cause; Y99.8 Other external cause status
CPT/HCPCS: 73140; 99283

== ENCOUNTER → 2020-11-25 | Outpatient (CLI) | payer MEDICARE ==
[~2020-11-25] MED LIST changes: -LISI1TAB19 PO; +LISI1TAB37 PO; +REGADENOSON 0.4 MG/5 ML DISP.SYRIN. IV ONE
--- NOTE | 2020-11-25 14:33 | RAD ---
MR#: [id number] Date of Study: 11/25/2020 Ordering Physician: TANNER OLIVA, Referring Physician: TANNER OLIVA, Tech: Kristopher Walker MBA, RDMS, RVT, RDCS, RTR APPROVED REPORT Patient Location: OUT-PATIENT Laterality:Bilateral Indications PVD Doppler Spectral Velocity Analysis Right Left pCCA 91/12 cm/spCCA 150/19 cm/s mCCA 105/16 cm/smCCA 124/16 cm/s dCCA 106/16 cm/sdCCA 142/27 cm/s Bulb 99/16 cm/sBulb 182/27 cm/s ECA 216/ cm/sECA 93/ cm/s pICA 127/21 cm/spICA 146/31 cm/s Demetrius 55/12 cm/smICA 150/38 cm/s dICA 54/12 cm/sdICA 132/33 cm/s Vert. 112/ cm/sVert. 26/ cm/s Subcl. 193/ cm/sSubcl. 136/ cm/s ICA/CCA 1.20ICA/CCA 1.00 Findings Grayscale images of the bilateral carotid vessels demonstrates moderate diffuse atherosclerotic plaqu e mostly localized to the carotid bulbs. Based on velocity criteria there is overall 0 to less than 50% stenosis in the right internal carotid artery. The right external carotid artery has greater than 75% stenosis probably. Right vertebral artery likely has greater than 50% stenosis based on velocity criteria. Based on velocity criteria there is likely moderate 50 to 69% stenosis involving the left proximal co mmon carotid and internal carotid vessels. The left external carotid artery does not have any signif icant disease. Left vertebral artery has diminished but normal velocity pattern. No significant subclavian disease bilaterally. Normal ICA to CCA ratios bilaterally. Critical Notification Critical Value: No <Conclusion> 1. Mild right sided internal carotid disease 2. Moderate left common carotid and internal carotid arterial disease. Signed by : Giorgi Kwon, Electronically Approved : 11/25/2020 14:33:03
--- NOTE | 2020-11-25 16:31 | RAD ---
MR#: [id number] Date of Study: 11/25/2020 Ordering Physician: TANNER OLIVA, Referring Physician: SILVIA FREDERICK Tech: RT Bryson (R) (N) APPROVED REPORT Test Type: Pharmacological Stress Nurse/Tech: Nallely Chua RN Test Indications: CAD Cardiac History: Hypertension,CABG x4 (05),stents x3, Diabetes Medications: See Electronic Medical Record Medical History: See Electronic Medical Record Resting ECG: SR Resting Heart Rate: 68 bpm Resting Blood Pressure: 171/76mmHg Pretest Chest Pain: No chest pain Nurse/Tech Notes S1,S2 and lungs clear to auscultation. Consent: The procedure was explained to the patient in lay terms. Informed consent was witnessed. Terence eout was entered into [employer]. History and Stress Test performed by RT Juanpablo BabcockR) (N) Pharm. Details Pharmacologic stress testing was performed using 0.4mg per 5ml of regadenoson given intravenously ove r 7-10 seconds. Stress Symptoms Nausea POST EXERCISE Reason for Termination: Infusion complete Target HR: No Max HR: 94 bpm Max Blood Pressure: 180/80mmHg Blood Pressure response to exercise: Normal blood pressure response during stress. Heart Rate response to exercise: WNL Chest Pain: No. Arrhythmia: No. ST Change: No. INTERPRETATION Stress EKG Conclusion: Baseline EKG showed sinus rhythm. No ischemic changes at peak stress. No arr hythmias. Imaging Protocol IMAGE PROTOCOL: Rest Tc-99m/stress Tc-99m 1 day Rest: Stress: Viability: Radiopharm.Tc99m [id number] Sestamibi Dose10.5mCi 30.4mCi Duration 15min. 15min. Img Date 11/25/2020 11/25/2020 Inj-Img Tjin66tej. 60min. Rest Admin Site:IV - Right ForearmAdministrator:SHANTA Macias, ARRT (R)(N) Stress Admin Site: IV - Right ForearmAdministrator: RT Juanpablo MasseyR)(N) STRESS DATA End Diast. Vol.76.0mlAv. Heart Rate84.0bpm End Syst. Vol.34.0mlCO Index BSA3.5L/min Myocardial Gniq640.0gEject. Xqlvrrxu66.0% Stress Rates Pk. Fill Rate2.91EDV/secLVtime Pk. Fill 150.28msec Pk. Empty Rate3.20ESV/secLVtime Pk. Oydrg068.67msec 1/3 Pk. Fill0.63EDV/sec Stress Scores Regional WT0.00Summed WT2.00 Regional WM0.00Summed WM12.00 LV Perfusion Scintigraphic images did not show any significant fixed or reversible defects. Wall Motion Abnormal septal wall motion most probably secondary to postoperative state. The left ventricular eje ction fraction was calculated at 45% LV Perf. Quant 17 Seg. SSS3.00 17 Seg. SRS0.00 17 Seg. SDS3.00 Stress Defect Extent (% LAD)9.40Rest Defect Extent (% LAD)0.00Rev. Defect Extent (% LAD)8.80 Stress Defect Extent (% LCX) 8.80Rest Defect Extent (% LCX)0.00Rev. Defect Extent (% LCX)8.80 Stress Defect Extent (% RCA)0.00Rest Defect Extent (% RCA)0.00Rev. Defect Extent (% RCA)0.00 Stress Defect Extent (% [place])8.70Rest Defect Extent (% [place])0.00Rev. Defect Extent (% [place])8.50 Conclusion 1. Regadenoson cardioisotope stress test did not show any evidence of ischemia or infarct. 2. Abnormal septal wall motion most probably secondary to postoperative state. The left ventricular ejection fraction was calculated at 45% 3. Low risk for cardiac events. Signed by : Tanner Oliva, Electronically Approved : 11/25/2020 16:31:30
--- NOTE | 2020-11-25 17:59 | CARD ---
MR#: [id number] Date of Study: 11/25/2020 Ordering Physician: TANNER OLIVA, Referring Physician: TANNER OLIVA Tech: Madeline Adair RDCS APPROVED REPORT EXAM: Two-dimensional and M-mode echocardiogram with Doppler and color Doppler. Other Information Quality : Fair INDICATION Cardiac Disease: CAD HX: CABG 2D DIMENSIONS RVDd2.6 (2.9-3.5cm)Left Atrium(2D)3.6 (1.6-4.0cm) IVSd0.8 (0.7-1.1cm)Aortic Root(2D)2.8 (2.0-3.7cm) LVDd3.9 (3.9-5.9cm)LVOT Diameter2.0 (1.8-2.4cm) PWd0.9 (0.7-1.1cm)LVDs3.2 (2.5-4.0cm) FS (%) 25.0 %SV24.8 ml LVEF(%)55.0 (>50%) Aortic Valve AoV Peak Jose L.125.7cm/sAoV VTI24.1cm AO Peak GR.6.3mmHgLVOT Peak Jose L.75.9cm/s AO Mean GR.3mmHgAVA (VMAX)1.82cm2 VALERIE (VTI)2.30cm2 Mitral Valve MV E Fopuwein316.1cm/sMV DECEL YEDK545lj MV A Jityqdix527.0cm/sE/A Ratio0.9 Tricuspid Valve TR P. Uqtusder661pt/sRAP [id number] TR Peak Gr.77sfMpMHPU09nzLs Pulmonary Vein S1 Tmnhqtvf32.2cm/sD2 Ugxuxusl68.3cm/s LEFT VENTRICLE The left ventricle is normal size. There is normal left ventricular wall thickness. The left ventricu lar systolic function is normal. The Ejection Fraction is 55-60%. Septal motion consistent with post operative state. Transmitral Doppler flow pattern is Grade I-abnormal relaxation pattern. RIGHT VENTRICLE The right ventricle is normal size. The right ventricular systolic function is normal. ATRIA The left atrium size is normal. The right atrium size is normal. The interatrial septum is intact wit h no evidence for an atrial septal defect or patent foramen ovale as noted on 2-D or Doppler imaging. AORTIC VALVE The aortic valve is calcified but opens well. Doppler and Color Flow revealed no significant aortic r egurgitation. There is no significant aortic valvular stenosis. MITRAL VALVE The mitral valve is calcified but opens well. Mitral annular calcification is mild. There is no evide nce of mitral valve prolapse. There is no mitral valve stenosis. Doppler and Color-flow revealed mild mitral regurgitation. TRICUSPID VALVE The tricuspid valve is normal in structure and function. Doppler and Color Flow revealed trace to mil d tricuspid regurgitation. The PA pressure was estimated at 29 mmHg. There is no tricuspid valve sten osis. PULMONIC VALVE The pulmonic valve is not well visualized. Doppler and Color Flow revealed trace pulmonic valvular re gurgitation. There is no pulmonic valvular stenosis. GREAT VESSELS The aortic root is normal in size. The ascending aorta is not well seen. The IVC is normal in size an d collapses >50% with inspiration. PERICARDIAL EFFUSION There is no evidence of significant pericardial effusion. Critical Notification Critical Value: No <Conclusion> The left ventricular systolic function is normal. The Ejection Fraction is 55-60%. Transmitral Doppler flow pattern is Grade I-abnormal relaxation pattern. Mild mitral regurgitation. Trace to mild tricuspid regurgitation. The PA pressure was estimated at 29 mmHg. There is no evidence of significant pericardial effusion. Signed by : Tanner Oliva, Electronically Approved : 11/25/2020 17:59:12
== END ==
LOC: NM 08:45
PROVIDERS: ATTEND Internal Medicine Cardiovascular Disease
DX: I08.3 Combined rheumatic disorders of mitral, aortic and tricuspid valves (principal); I65.23 Occlusion and stenosis of bilateral carotid arteries; I10 Essential (primary) hypertension; I25.10 Atherosclerotic heart disease of native coronary artery without angina pectoris
CPT/HCPCS: 78452; 93017; 93306; 93880; A9500; J2785

== ENCOUNTER → 2021-01-18 | Outpatient (CLI) | payer MEDICARE ==
[~2021-01-18] MED LIST changes: -REGADENOSON 0.4 MG/5 ML DISP.SYRIN. IV ONE
--- NOTE | 2021-01-18 16:30 | KCIC ---
EXAM: Right shoulder, 3 views HISTORY: Pain. COMPARISON: None. FINDINGS: 3 views of the right shoulder obtained. There is no acute fracture, dislocation or subluxat ion. There is mild acromioclavicular joint osteoarthritis with a tiny inferolateral ejection distal c linical or spur. There are healed right rib fractures. There are median sternotomy wires. IMPRESSION: Mild acromioclavicular joint osteoarthritis. Electronically signed by: Megan Rodriguez MD (01/18/2021 4:28 PM) [id number]
--- NOTE | 2021-01-18 17:12 | KCIC ---
EXAM: Lumbar spine, 3 views. HISTORY: Chronic pain. COMPARISON: None. FINDINGS: 3 views of the lumbar spine are obtained. There is mild lumbar hyperlordosis. There is 5 mm retrolisthesis of L2 on L3 and 3 mm retrolisthesis of L3 on L4 and L1 on L2. There is degenerative e ndplate remodeling predominantly at L2-L3, and to a lesser extent, L1-L2. There is facet arthropathy predominantly at the mid lower lumbar levels. There is atherosclerotic plaque involving the aorta and iliac bifurcation. IMPRESSION: 1. Multilevel degenerative change, primarily at L2-L3. 2. Mild multilevel retrolisthesis and lumbar hyperlordosis. Electronically signed by: Mgean Rodriguez MD (01/18/2021 5:09 PM) [id number]
== END ==
LOC: KCIC 15:02
PROVIDERS: ATTEND Nurse Practitioner Family
DX: M19.011 Primary osteoarthritis, right shoulder (principal); M47.816 Spondylosis without myelopathy or radiculopathy, lumbar region; M43.16 Spondylolisthesis, lumbar region
CPT/HCPCS: 72100; 73030

== ENCOUNTER 2021-04-21 09:34 | Outpatient (CLI) | payer MEDICARE ==
[~2021-04-21 09:34] MED LIST changes: +ACET325T9 PO; +ASPI81TA59 PO; +ATOR80TA72 PO; +EMPA25TA PO; +IV RINGERS,LACTATED 1000ML 1,000 ML IV SCH; +LISI10TA16 PO; -OMEP40CA45 PO; +OMEP40CA7 PO; +PANT40TA6 PO; +SENN1TAB99 PO; +TAMS0.4C97 PO
[2021-04-21] MEDS ORDERED: PROPOFOL 10 MG/ML (20ML) VIAL. IV ONE (10:22)
[2021-04-21] MEDS ORDERED: LIDOCAINE 2% PF 5 ML VIAL. ONE (10:22)
[2021-04-21] MEDS ORDERED: IV RINGERS,LACTATED 1000ML 1,000 ML IV SCH (12:00)
[2021-04-21] MEDS ORDERED: ONDANSETRON PF 4 MG/2 ML VIAL. ONE (12:05)
[2021-04-21] MEDS ORDERED: MORPHINE SULFATE 2 MG/ML VIAL. IVP PRN (12:15)
[2021-04-21] MEDS ORDERED: PROCHLORPERAZINE 10 MG/2 ML VIAL. IVP PRN (12:15)
[2021-04-21] MEDS ORDERED: HYDROmorphone 2 MG/ML VIAL IVP PRN (12:15)
[2021-04-21] MEDS ORDERED: ONDANSETRON PF 4 MG/2 ML VIAL. IVP ONE (12:15)
[2021-04-21] MEDS ORDERED: fentaNYL PF VIAL 100 MCG/2 ML VIAL IVP PRN ×2 (12:15)
[2021-04-21 12:46] VITALS: BP 165/71
--- NOTE | 2021-04-21 15:13 | RAD ---
MR LUMBAR SPINE WO -[id number], MRI THORACIC SPINE WO Date: 04/21/2021 10:04 AM Indication: BACK PAIN, HX OF FALL Comparison: CT 03/20/2021. Technique: Multi-planar multi-weighted magnetic resonance imaging of the thoracic and lumbar spine wa s performed without intravenous contrast using the standard spine protocol. FINDINGS: Motion artifact degrades image quality on several sequences. The brain spine is normally aligned. 7 mm retrolisthesis at L2-3. No acute fracture. Moderate multile alan degenerative disc desiccation and disc height loss, severe at L2-3. Degenerative endplate edema a t L2-3. The conus terminates at a normal level. No abnormal signal is seen within the visualized distal spina l cord. No clumping of intrathecal nerve roots. No soft tissue abnormality in the visualized abdomen or pelvis. Thoracic: Multilevel tiny disc bulges. Mild spinal canal stenosis at T7-8 and T8-9. No significant ne ural foraminal narrowing. T12-L1: No disc bulge. No facet arthropathy. No significant spinal stenosis or neural foraminal narro wing. L1-L2: Disc bulge. Mild facet arthropathy. No significant spinal stenosis or neural foraminal narrowi ng. L2-L3: Disc bulge. Moderate facet arthropathy. Mild spinal stenosis and lateral recess narrowing. Mod erate to severe right and severe left neural foraminal narrowing. L3-L4: Disc bulge. Moderate facet arthropathy. Moderate to severe spinal stenosis and right greater t chinchilla left lateral recess narrowing. Moderate to severe bilateral neural foraminal narrowing. L4-L5: Disc bulge. Severe facet arthropathy. Moderate spinal stenosis and right lateral recess narrow ing. Moderate to severe right and moderate left neural foraminal narrowing. L5-S1: Disc bulge. Severe facet arthropathy. No significant spinal stenosis. Severe right and moderat e to severe left neural foraminal narrowing. IMPRESSION: 1. No acute thoracic or lumbar spine fracture. 2. Mild thoracic spondylosis. Advanced lumbar spondylosis. Electronically signed by: Jim Sotelo MD (04/21/2021 3:11 PM) [id number]
== END 2021-04-21 13:16 | disposition home or self-care (01) ==
LOC: SURG 09:34
PROVIDERS: ATTEND Nurse Practitioner Family
DX: M47.814 Spondylosis without myelopathy or radiculopathy, thoracic region (principal); M47.816 Spondylosis without myelopathy or radiculopathy, lumbar region; I25.10 Atherosclerotic heart disease of native coronary artery without angina pectoris; I10 Essential (primary) hypertension; E78.00 Pure hypercholesterolemia, unspecified; K21.9 Gastro-esophageal reflux disease without esophagitis; M19.90 Unspecified osteoarthritis, unspecified site; E11.9 Type 2 diabetes mellitus without complications; G47.30 Sleep apnea, unspecified; F41.9 Anxiety disorder, unspecified; F32.9 Major depressive disorder, single episode, unspecified; Z79.82 Long term (current) use of aspirin; Z79.84 Long term (current) use of oral hypoglycemic drugs; Z79.899 Other long term (current) drug therapy; Z98.890 Other specified postprocedural states
CPT/HCPCS: 72146; 72148; J2405; J2704

== ENCOUNTER → 2021-12-01 | Outpatient (CLI) | payer MEDICARE ==
[~2021-12-01] MED LIST changes: -IV RINGERS,LACTATED 1000ML 1,000 ML IV SCH
--- NOTE | 2021-12-02 14:29 | RAD ---
MR#: [id number] Date of Study: 12/01/2021 Ordering Physician: TANNER OLIVA, Referring Physician: TANNER OLIVA, Tech: Zaira Correa RVT, [place] APPROVED REPORT Patient Location: OUT-PATIENT Indications Claudication: Risk Factors Hypertension Diabetes VELOCITY AND DOPPLER WAVEFORM ANALYSIS RIGHT cm/secWaveformSeverity LEFT cm/secWaveform Severity dCFA 159.0BiphasicdCFA 145.0Biphasic Prof Fem Art. 55.0BiphasicProf Fem Art. 79.0Biphasic Fem Art Prox. 253.0BiphasicFem Art Prox. 67.0Biphasic Fem Art Mid. 150.0BiphasicFem Art Mid. 145.0Biphasic Fem Art Dist. 110.0BiphasicFem Art Dist. 74.0Biphasic Pop Art(Fossa) 128.0BiphasicPop Art(AK) 70.0Biphasic UX INTERACTION DESIGNER Prox. 51.0BiphasicPTA Prox. 38.0Biphasic UX INTERACTION DESIGNER Dist. 62.0BiphasicPTA Dist. 22.0Biphasic Per Art Dist.38.0BiphasicPer Art Dist.23.0Biphasic URVASHI Prox. 33.0BiphasicATA Prox. 37.0Monophasic DPA 0DPA 11 Findings Grayscale images of the bilateral lower extremity arterial vessels demonstrates moderate to severe di ffuse atherosclerosis. On the right side there is likely a moderate less than 50% stenosis involving the proximal SFA. Ther e are mostly biphasic flow waveforms throughout the lower extremity with three-vessel runoff below th e knee. There is distal small vessel occlusive disease at the level of the dorsalis pedis artery. On the left side there are mostly biphasic waveforms above the knee and monophasic waveforms below th e knee. Velocities are within normal limits above the knee and diminished below the knee although th ere is no focal critical stenosis noted. Again note is made of severe small vessel disease at the le alan of the dorsalis pedis artery. Critical Notification Critical Value: No <Conclusion> 1. No significant above-knee disease bilaterally 2. Probable severe small vessel disease at the level of the ankle. There is three-vessel runoff payton aterally. Signed by : Giorgi Kwon, Electronically Approved : 12/02/2021 14:29:25
--- NOTE | 2021-12-02 14:52 | CARD ---
MR#: [id number] Date of Study: 12/01/2021 Ordering Physician: TANNER OLIVA, Referring Physician: TANNER OLIVA Tech: Meche Iglesias [facility] APPROVED REPORT EXAM: Two-dimensional and M-mode echocardiogram with Doppler and color Doppler. Other Information Quality : GoodHR: 76bpm Rhythm : NSR INDICATION Cardiac Disease: CAD RISK FACTORS Hypertension Obesity Hyperlipidemia 2D DIMENSIONS RVDd3.2 (2.9-3.5cm)Left Atrium(2D)3.8 (1.6-4.0cm) IVSd1.1 (0.7-1.1cm)Aortic Root(2D)3.1 (2.0-3.7cm) LVDd3.9 (3.9-5.9cm)LVOT Diameter2.1 (1.8-2.4cm) PWd1.2 (0.7-1.1cm)LVDs2.5 (2.5-4.0cm) FS (%) 35.0 %SV42.7 ml LVEF(%)65.0 (>50%) Aortic Valve AoV Peak Jose L.132.7cm/sAoV VTI29.3cm AO Peak GR.7.0mmHgLVOT Peak Jose L.78.6cm/s AO Mean GR.4mmHgAVA (VMAX)2.05cm2 Mitral Valve MV E Qwpfadtb798.8cm/sMV DECEL QLYF141al MV A Tbbocqsi145.0cm/sE/A Ratio0.9 Tricuspid Valve TR P. Swuhzpvy104vh/sTR Peak Gr.28mmHg LEFT VENTRICLE The left ventricle is normal size. There is mild concentric left ventricular hypertrophy. The left ve ntricular systolic function is normal and the ejection fraction is within normal range. Estimated eje ction fraction 60- 65%. Septal motion suggestive of prior sternotomy, otherwise there is normal LV se gmental wall motion. Transmitral Doppler flow pattern is Grade I-abnormal relaxation pattern. RIGHT VENTRICLE The right ventricle is normal size. There is normal right ventricular wall thickness. The right ventr icular systolic function is normal. ATRIA The left atrium size is normal. The right atrium size is normal. The interatrial septum is intact wit h no evidence for an atrial septal defect or patent foramen ovale as noted on 2-D or Doppler imaging. AORTIC VALVE The aortic valve is normal in structure and function. Doppler and Color Flow revealed trace aortic re gurgitation. There is no significant aortic valvular stenosis. MITRAL VALVE The mitral valve is normal in structure and function. There is no evidence of mitral valve prolapse. There is no mitral valve stenosis. Doppler and Color-flow revealed mild mitral regurgitation. TRICUSPID VALVE The tricuspid valve is normal in structure and function. Doppler and Color Flow revealed mild tricusp id regurgitation. Estimated PAP 32 mmHg. There is no tricuspid valve stenosis. PULMONIC VALVE Doppler and Color Flow revealed mild pulmonic valvular regurgitation. There is no pulmonic valvular s tenosis. GREAT VESSELS The aortic root is normal in size. The ascending aorta is normal in size. The IVC is normal in size a nd collapses >50% with inspiration. PERICARDIAL EFFUSION There is no evidence of significant pericardial effusion. Critical Notification Critical Value: No <Conclusion> The left ventricular systolic function is normal and the ejection fraction is within normal range. E stimated ejection fraction 60- 65%. Septal motion suggestive of prior sternotomy, otherwise there is normal LV segmental wall motion. Signed by : Giorgi Kwon, Electronically Approved : 12/02/2021 14:52:32
== END ==
LOC: US 12:53
PROVIDERS: ATTEND Internal Medicine Cardiovascular Disease
DX: I08.8 Other rheumatic multiple valve diseases (principal); I70.203 Unspecified atherosclerosis of native arteries of extremities, bilateral legs; I25.10 Atherosclerotic heart disease of native coronary artery without angina pectoris
CPT/HCPCS: 93306; 93925; C8929